=== PATIENT | female | born 1990 | race African-American/Black ===

== ENCOUNTER 2017-10-03 00:59 | Emergency (ER) | payer MEDICAID ==
[~2017-10-03] VITALS: Ht 172.7 cm; Wt 52.0 kg
[~2017-10-03 00:59] MED LIST: DICL75 PO
[2017-10-03 01:01] VITALS: BP 118/57; PULSE 66; RESP 14; TEMP 98.2; O2SAT 100
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
== END 2017-10-03 02:40 | disposition home or self-care (01) ==
LOC: NEPE 00:59
DX: R10.30 Lower abdominal pain, unspecified (principal); N89.8 Other specified noninflammatory disorders of vagina; Z72.0 Tobacco use
CPT/HCPCS: 99282